=== PATIENT | female | born 1950 | race Caucasian/White ===

== ENCOUNTER → 2017-10-21 11:11 | Outpatient (BNVA) | payer MEDICARE, BC, SELFPAY | PROVIDERS: Visit Provider Internal Medicine Cardiovascular Disease | DX: I49.1 Atrial premature depolarization (principal); Z98.890 Other specified postprocedural states; I08.0 Rheumatic disorders of both mitral and aortic valves | CPT/HCPCS: 99213 ==

== ENCOUNTER 2017-11-21 10:05 | Outpatient (REF) | payer MEDICARE, BC, SELFPAY ==
[2017-11-21 13:07] LABS: ALT 25 U/L (12-78); AST 18 U/L (15-37); Albumin 3.6 g/dL (3.4-5.0); Alkaline Phosphatase 54 U/L (46-116); BUN 14 mg/dL (7-18); Bilirubin, Total 0.8 mg/dL (0.2-1.0); CREATININE 0.64 mg/dL (0.55-1.02); Calcium 8.9 mg/dL (8.5-10.1); Chloride 107 mmol/L (98-107); Glucose 95 mg/dL (70-100); Sodium 142 mmol/L (136-145); Total Protein 6.6 g/dL (6.4-8.2)
[2017-11-22 11:02] LABS: Hepatitis C Ab w Rflx HCV PCR Negative (NEGAT)
== END 2017-11-21 10:25 ==
LOC: NCHCN 10:05
PROVIDERS: PCP Nurse Practitioner Family; Visit Provider Nurse Practitioner Family
DX: E78.5 Hyperlipidemia, unspecified (principal); I10 Essential (primary) hypertension; I49.9 Cardiac arrhythmia, unspecified; I48.91 Unspecified atrial fibrillation; R31.21 Asymptomatic microscopic hematuria; M81.0 Age-related osteoporosis without current pathological fracture; Z11.59 Encounter for screening for other viral diseases
CPT/HCPCS: 80053; 86803

== ENCOUNTER → 2018-11-10 09:49 | Outpatient (BNVA) | payer MEDICARE, BC, SELFPAY | PROVIDERS: PCP Nurse Practitioner Family; Referring Provider Nurse Practitioner Family; Visit Provider Internal Medicine Cardiovascular Disease | DX: I47.1 Supraventricular tachycardia (principal); I10 Essential (primary) hypertension | CPT/HCPCS: 99213 ==

== ENCOUNTER 2019-03-05 16:28 | Outpatient (REF) | payer MEDICARE, BC, SELFPAY ==
[2019-03-05 22:26] LABS: ALT 20 U/L (14-59); AST 16 U/L (15-37); Albumin 4.4 g/dL (3.4-5.0); Alkaline Phosphatase 51 U/L (46-116); Anion Gap 10.9 mmol/L (3-11); BUN 17 mg/dL (7-18); Bilirubin, Total 0.9 mg/dL (0.2-1.0); CO2 26.1 mmol/L (21.0-32.0); CREATININE 0.69 mg/dL (0.55-1.02); Calcium 9.6 mg/dL (8.5-10.1); Chloride 102 mmol/L (98-107); Glucose 81 mg/dL (74-106); Potassium 4.1 mmol/L (3.5-5.1); Sodium 139 mmol/L (136-145); Total Protein 7.5 g/dL (6.4-8.2)
== END 2019-03-05 16:48 ==
LOC: NCHCN 16:28
PROVIDERS: PCP Nurse Practitioner Family; Visit Provider Nurse Practitioner Family
DX: I10 Essential (primary) hypertension (principal); E78.5 Hyperlipidemia, unspecified; I48.91 Unspecified atrial fibrillation
CPT/HCPCS: 80053

== ENCOUNTER 2019-04-10 02:00 | Outpatient (CLI) | payer MEDICARE, BC, SELFPAY ==
--- NOTE | 2019-04-10 | DI.MAMMO_ITS ---
EXAM: MG MAMMO SCREENING CLINICAL HISTORY: SCREENING, Z12.39 TECHNIQUE: Mammograms were interpreted according to the usual protocol including computer analysis w [employer] CAD system, tomosynthesis and C-view imaging. COMPARISON: FINDINGS: The breasts are of heterogeneously increased radiodensity with fairly symmetrical distribution of fib roglandular tissue. No dominant mass or clumped microcalcification is identified in either breast. Current examination is compared with previous examinations including June 2017 and there has been no g ross interval change in appearance comparison with previous studies. IMPRESSION: No specific evidence of malignancy at this time. Routine screening examinations are suggested at ye farshad intervals in this age group according the ACS ACR guidelines. Category 1 breast density category C.
== END 2019-04-10 02:20 ==
PROVIDERS: PCP Nurse Practitioner Family; Visit Provider Nurse Practitioner Family
DX: Z12.31 Encounter for screening mammogram for malignant neoplasm of breast (principal)
CPT/HCPCS: 77063; 77067

== ENCOUNTER → 2019-04-26 10:24 | Outpatient (BNVA) | payer MEDICARE, BC, SELFPAY | PROVIDERS: PCP Nurse Practitioner Family; Referring Provider Nurse Practitioner Family; Visit Provider Physical Therapy Assistant | DX: Z12.11 Encounter for screening for malignant neoplasm of colon (principal); I10 Essential (primary) hypertension ==

== ENCOUNTER 2019-07-13 08:42 | Outpatient (CLI) | payer MEDICARE, BC, SELFPAY ==
[2019-07-14 12:19] LABS: COVID-19 RT-PCR UVMMC Result Negative (Negative)
== END 2019-07-13 09:02 ==
PROVIDERS: PCP Nurse Practitioner Family; Visit Provider Surgery
DX: Z03.818 Encounter for observation for suspected exposure to other biological agents ruled out (principal)
CPT/HCPCS: U0003

== ENCOUNTER 2019-07-16 06:16 | Day surgery (SDC) | payer MEDICARE, BC, SELFPAY ==
[2019-07-16 06:16] VITALS: BP 114/72; PULSE 75; RESP 18; TEMP 36.8; O2SAT 98
--- NOTE | 2019-07-16 06:25 | W.PREOPHP ---
Date of service: 07/16/19 Time of Service: 07:11 Assessment and Plan Assessment and plan (1) Screening for malignant neoplasm of colon performed: Status: Acute Assessment and plan: The patient is here for Colonoscopy pre-op. Her last screening was in 2008 and was unremarkable. She has no family history of colon cancer. She has not had any bowel habit changes. -Discussed colonoscopy bowel prep as well as the procedure. Discussed possible complications of the procedure to include bleeding, pain, perforation, missed small lesion/polyp, sore throat, aspiration and adverse reaction to the medications. Questions were answered to patient?s satisfaction. No guarantees were implied or given. Discussed patient's echo with anesthesia and she is okay to proceed. She will hold her aspirin x 5 days prior to her procedure. (2) COVID-19 virus not detected: Status: Acute History of Present Illness Narrative: 68 y/o female with history of HTN, atrial fibrillation and SVT (s/p ablation in 2007) presents for colonoscopy screening pre-op. Her last screening was in 2008, which was unremarkable. She denies a family history of colon cancer. She denies any changes in bowel habits including bloody or black tarry stools, abdominal pain, diarrhea or constipation. She denies constitutional symptoms. Denies use of marijuana or any other recreational or illegal drugs. She denies chest pain, palpitations, dyspnea or dyspnea with exertion. Her last cardiology appointment was in 2018 with recommended 1 year follow up. Last Echo was in 2017 which showed moderate aortic insufficiency and moderate mitral regurgitation per the cardiology note. Unable to locate the echo report. She works 4 days a week cleaning houses. She denies prior history or family history of adverse reactions or complications with anesthesia. She denies having any metal implanted in her body. Her Colonoscopy was delayed due to COVID-19. She has had no changes in her health since she was seen in the office in April Review of Systems Constitutional Constitutional: Denies fever(s), Denies headache(s) and Denies weight loss Eyes Eyes: Denies change in vision ENT Ears, Nose, Mouth, and Throat: Denies change in voice, Denies headache(s) and Denies hoarseness Cardiovascular Cardiovascular: Denies chest pain, Denies irregular heart rhythm, Denies palpitations and Denies dyspnea Respiratory Respiratory: Denies cough and Denies dyspnea Gastrointestinal Gastrointestinal: Reports as per HPI and Reports system reviewed and no additional complaints, except as documented Neurologic Neurologic: Denies headache(s) Endocrine Endocrine: Denies palpitations PFSH Medical History Atrial fibrillation (Chronic) 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) Former smoker (Acute) Glaucoma (Chronic) HLD (hyperlipidemia) (Acute) HTN (hypertension) (Chronic) Osteoporosis (Chronic) Palpitations (Acute) SVT (supraventricular tachycardia) (Chronic ~2017) Surgical History (Updated 07/16/19 @ 06:33 by Dayami Cline RN) History of colonoscopy (Chronic) S/P ablation operation for arrhythmia (Acute ~2007) Social History Smoking/Tobacco Use Status: Former Tobacco Use Quit Date: 07/16/99 Alcohol Intake: never Substance use type: does not use Do you feel safe at home: Yes Do you feel safe in your relationship?: Yes Meds Home Medications and Allergies Home Medications Medication Instructions Recorded Confirmed Type latanoprost 1 drp OU HS 02/13/16 07/16/19 History simvastatin 20 mg tablet 20 mg PO QPM 10/21/17 07/16/19 History calcium carbonate 600 mg (1,500 1 cap PO DAILY cap 11/10/18 07/16/19 History mg)-vitamin D3 500 unit capsule multivitamin 1 tab PO DAILY 11/10/18 07/16/19 History aspirin 81 mg tablet,delayed 81 mg PO DAILY 03/13/19 07/16/19 History release metoprolol succinate 25 mg 25 mg PO DAILY 03/13/19 07/16/19 History tablet,extended release 24 hr Allergies Allergy/AdvReac Type Severity Reaction Status Date / Time No Known Allergies Allergy Unverified 07/16/19 06:33 Exam Const General: cooperative, comfortable and no acute distress Orientation: alert and oriented x3 HENMT Head: normocephalic and atraumatic Resp Effort & Inspection: normal respiratory effort Auscultation: clear to auscultation bilaterally Cardio Rate: regular rate Rhythm: regular rhythm Heart Sounds: no gallops, no murmurs and no rubs
--- NOTE | 2019-07-16 06:28 | W.COLOREPORT ---
Date of service: 07/16/19 Time of Service: : Colonoscopy Report Date of procedure: 07/16/19 Pre-op diagnosis general: Colon Cancer Screening Post-op diagnosis procedure note: other (polyps and Diverticulosis) Procedure: Colonoscopy with polypectomy Surgeon: Rekha Tucker Anesthesia proc note operative: other (General/ ASA 2/Zaida Wan CRNA) Estimated blood loss (mL): 3 Pathology: other (rectal polyps x2) Complications: None Disposition: same day Indications: The patient is here for Colonoscopy pre-op. Her last screening was in 2008 and was unremarkable. She has no family history of colon cancer. She has not had any bowel habit changes. -Discussed colonoscopy bowel prep as well as the procedure. Discussed possible complications of the procedure to include bleeding, pain, perforation, missed small lesion/polyp, sore throat, aspiration and adverse reaction to the medications. Questions were answered to patient?s satisfaction. No guarantees were implied or given. Discussed patient's echo with anesthesia and she is okay to proceed. She will hold her aspirin x 5 days prior to her procedure. Prep: Miralax/Dulcolax Procedure Start Time: Procedure End Time: :58 Retraction Time: 15 minutes Findings: Aguilera-diverticulosis 2 small adenomatous rectal polyps Procedure Description: After informed consent was obtained the patient was taken to the procedure room and placed in a left decubitous position. Monitors were applied and a time out was done. The patients name, date of , procedure, allergies to medications and metal in their body was reviewed. The patient was then sedated. Once sedated and comfortable a rectal exam was done. External exam revealed mild rectal tissue prolapse. Internal exam revealed a normal sphincter tone and no palpable masses. The scope was then introduced and retro-flexed. No internal hemorrhoids, masses or polyps were identified on retro-flexion. The scope was then advanced to the cecum with some difficulty. There was moderate to severe aguilera-diverticulosis and her colon was tortuous. The ileocecal valve and appendiceal orifice were identified. The prep was adequate. The scope was then slowly retracted over 15 minutes back into the rectum. Polyps were removed with cold forceps in the rectum. The scope was removed and the patient was woken up and taken back to Same day surgery in stable condition. The patient tolerated the procedure well and there were no immediate complications. Follow up: The patient should follow up in 3-5 years unless they develop changes in bowel habits or other new gastrointestinal complaints.
--- NOTE | 2019-07-16 06:29 | PDOC.DSDIS_ITS ---
Discharge Plan Disposition Patient Disposition: HOME Condition: Good Discharge Details Reason For Visit: Colon Cancer Screening Attending Provider: Rekha Tucker Primary Care Provider: Saundra Mascorro Home Meds and New Rx's Prescriptions: Continued multivitamin Tablet 1 tab PO DAILY RF: 0 calcium carbonate-vitamin D3 [Calcium 600 with Vitamin D3] 600 mg(1,500mg) - 500 unit capsule 1 cap PO DAILY RF: 0 simvastatin 20 mg tablet 20 mg PO QPM RF: 0 aspirin [Adult Aspirin Regimen] 81 mg tablet,delayed release (DR/EC) 81 mg PO DAILY RF: 0 metoprolol succinate 25 mg tablet extended release 24 hr 25 mg PO DAILY RF: 0 latanoprost 2.5 ML drops 1 drp OU HS RF: 0 Discontinued polyethylene glycol 3350 17 gram/dose powder 238 g PO ONCE Qty: 238 RF: 0 bisacodyl [Dulcolax (bisacodyl)] 5 mg tablet,delayed release (DR/EC) 5 mg PO ONCE Qty: 4 RF: 0 Discharge Instructions Instructions: Diverticulosis (GEN), Colorectal Polyps (GEN) Additional Instructions: Findings: Diverticulosis 2 small polyps Follow up: 3-5 years Please call if you develop: fevers >101.5 Nausea or Vomiting Abdominal pain that is not transient DAY SURGERY UNIT POST ENDOSCOPY INSTRUCTIONS 1. Because there will be medication in your system for the next 24 hours, you may feel a little sleepy. Your coordination will be affected. Therefore: a. Do not drive or operate dangerous equipment for 24 hours. b. Do not drink alcohol beverages for 24 hours (not even beer). c. Plan to go home and rest for the day. 2. Generally there are no restrictions on your activity after a day or so has gone by, but you may feel a bit fatigued for a few days. 3 After you arrive home you may have a light meal and return to a normal diet as you can tolerate it without feeling sick to your stomach. 4. After surgery, you may feel pain or discomfort. This should be only transient, but if it persists please contact your doctor. 5. If there are any questions regarding the findings of your procedure, please feel free to contact your doctor. 6. If you are unable to contact your doctor with a problem, contact the hospital at [phone]. 7. Continue all your regular medications unless directed otherwise. I understand the above instructions and have no questions. Signature of Patient or Responsible Adult Escort Date/Time Name of Responsible Adult Escort Signature of Nurse Date/Time Activity:: Activity as Tolerated Diet:: high fiber diet Discharge Orders Discharge Orders: Discharge Order (Routine); Ordered 07/16/19 Ordered By: Rekha Tucker DS: Diagnosis Discharge Diagnosis (1) Screening for malignant neoplasm of colon performed: Status: Acute (2) COVID-19 virus not detected: Status: Acute
[2019-07-16] MEDS: Lactated Ringers 1,000 ML 80 ML IV (06:45)
--- NOTE | 2019-07-16 07:32 | BOWEL_PTH ---
PATIENT: Iliana Azul LOC: [facility] U#:[id number] AGE/SX: 68/F ROOM: RE07/16/[address]: Rekha Tucker MD : 1950 BED: DIS: 07/16/2019 SPEC #: [id number] RECD: 07/16/19 14:23 STATUS: GINA REQ #: [id number] OSVALDO: 07/16/19 07:[address]: Rekha Tucker DEPT: Surgical Specimen RECD BY: Teresa Still ENTERED: 07/16/19 14:28 SP TYPE: Bowel OTHR DR: Saundra Mascorro Tissues: ] - BIOPSY BOWEL Procedures: GROSS AND MICRO LEVEL 4 Comments: [id number]
[2019-07-16 08:36] VITALS: BP 92/46; PULSE 63; RESP 18; TEMP 36.2; O2SAT 99
[2019-07-16] MEDS: Hyoscyamine 0.125 MG SL/ORAL/CHEW SL (08:55)
[2019-07-16 09:45] VITALS: BP 106/57; PULSE 68; RESP 17; TEMP 36.6; O2SAT 100
== END 2019-07-16 10:02 | disposition home or self-care (01) ==
PROVIDERS: PCP Nurse Practitioner Family; Visit Provider Surgery
PROC: 0DJD8ZZ Inspection of Lower Intestinal Tract, Via Natural or Artificial Opening Endoscopic (ICD-10-PCS; CPT 45378; principal; 2019-07-16 07:30)
DX: Z12.11 Encounter for screening for malignant neoplasm of colon (principal); K62.1 Rectal polyp; K57.30 Diverticulosis of large intestine without perforation or abscess without bleeding; Q43.8 Other specified congenital malformations of intestine; I10 Essential (primary) hypertension; I48.91 Unspecified atrial fibrillation
CPT/HCPCS: 45380; 88305; NC; J2001; J2405; J3490

== ENCOUNTER → 2019-11-13 10:30 | Outpatient (BNVA) | payer MEDICARE, BC, SELFPAY | PROVIDERS: PCP Nurse Practitioner Family; Referring Provider Nurse Practitioner Family; Visit Provider Internal Medicine Cardiovascular Disease | DX: I47.1 Supraventricular tachycardia (principal); Z12.11 Encounter for screening for malignant neoplasm of colon; I08.0 Rheumatic disorders of both mitral and aortic valves; I10 Essential (primary) hypertension | CPT/HCPCS: 99204; 99215 ==

== ENCOUNTER 2020-04-10 18:10 | Outpatient (REF) | payer MEDICARE, BC, SELFPAY ==
[2020-04-10 20:25] LABS: ALT 22 U/L (14-59); AST 19 U/L (15-37); Albumin 4.2 g/dL (3.4-5.0); Alkaline Phosphatase 60 U/L (46-116); Anion Gap 12.1 mmol/L (3-11); BUN 21 mg/dL (7-18); Bilirubin, Total 1.1 mg/dL (0.2-1.0); CO2 22.9 mmol/L (21.0-32.0); CREATININE 0.6 mg/dL (0.55-1.02); Calcium 9.5 mg/dL (8.5-10.1); Chloride 104 mmol/L (98-107); Glucose 80 mg/dL (74-106); Sodium 139 mmol/L (136-145); Total Protein 7.4 g/dL (6.4-8.2)
== END 2020-04-10 18:11 | disposition home or self-care (01) ==
LOC: NCHCN 18:10
PROVIDERS: PCP Nurse Practitioner Family; Visit Provider Nurse Practitioner Family
DX: I10 Essential (primary) hypertension (principal); E78.5 Hyperlipidemia, unspecified; I48.91 Unspecified atrial fibrillation; I47.1 Supraventricular tachycardia
CPT/HCPCS: 80053

== ENCOUNTER 2020-04-21 01:33 | Outpatient (CLI) | payer MEDICARE, BC, SELFPAY ==
--- NOTE | 2020-04-21 | DI.MAMMO_ITS ---
EXAM: MAMMO SCREENING CLINICAL HISTORY: SCREENING, Z12.39 TECHNIQUE: Mammograms were interpreted according to the usual protocol including computer analysis w [employer] CAD system, tomosynthesis and C-view imaging. COMPARISON: 2016 through 2019 FINDINGS: The breasts are composed of heterogeneously dense fibroglandular densities, Breast Density category C . No suspicious masses or suspicious microcalcifications are seen. No skin thickening or abnormal axillary lymph nodes are seen. There has been no significant change from prior exams. IMPRESSION: BI-RADS Category 1, Negative mammogram. Yearly screening mammography is recommended. Breast Density Category C, heterogeneously Dense. The mammogram demonstrates the patient's breast tissue is dense. Dense breast tissue is very common a nd is not abnormal but dense breast tissue can make it harder to find cancer on a mammogram. Also, de nse breast tissue may increase breast cancer risk. This information about the result of the mammogram report was provided to the patient to raise their awareness. Use this report when you speak with the patient about their risks for breast cancer, which includes their family history. At that time, you may recommend additional screening tests (Ultrasound or MRI) as they might be useful based on their r isk. A negative radiographic report should not delay biopsy if a dominant or clinically suspicious mass is present. Up to ten percent of cancers are not identified on mammography. A negative report may reinforce clinical impression. Adenosis and dense breasts may obscure an underlying neoplasm. False positive reports average 6 to 10%.
== END 2020-04-21 01:53 ==
PROVIDERS: PCP Nurse Practitioner Family; Visit Provider Nurse Practitioner Family
DX: Z12.31 Encounter for screening mammogram for malignant neoplasm of breast (principal)
CPT/HCPCS: 77063; 77067

== ENCOUNTER 2020-12-11 01:06 | Outpatient (CLI) | payer MEDICARE, BC, SELFPAY ==
--- NOTE | 2020-12-11 07:00 | DI.US_ITS ---
APPROVED REPORT EXAM: Comprehensive 2D, Doppler, and color-flow Echocardiogram Patient Location: Out-Patient Cutter Operator [employer] Shingle: Kati Ellison RDCS (AE) Indications: Mitral valve regurgitation, Aortic Insufficiency Other Information Study Quality: Good Conclusion Normal left ventricular wall thickness and chamber size. Estimated ejection fraction is 60 to 65%. There are no segmental wall motion abnormalities Normal right ventricular size and systolic function The right atrium is normal in size. The left atrium is moderately dilated The aortic valve is trileaflet. Leaflets are mildly thickened. There is trace to mild aortic regurg itation Normal mitral valve with mild to moderate mitral regurgitation Normal tricuspid valve with mild regurgitation. Estimated right ventricular systolic pressure is 28 mmHg Wall motion Left Ventricle The left ventricle is normal size. The left ventricular systolic function is normal. The left ventric ular ejection fraction is within the normal range. There is normal left ventricular wall thickness. T here is normal LV segmental wall motion. There is no ventricular septal defect visualized. LVEF is 60 -65%. Right Ventricle The right ventricle is normal size. The right ventricular systolic function is normal. The RVSP is 28 .1mmHg. Atria Left atrium is moderately dilated. Right atrium is moderately dilated. The interatrial septum is inta ct with no evidence for an atrial septal defect. Aortic Valve Mildly thickened leaflets Aortic valve is trileaflet. There is no aortic valvular stenosis. Trace to mild aortic regurgitation. Mitral Valve The mitral valve is normal in structure. No evidence of mitral valve stenosis. Mild to moderate renzo l regurgitation. Tricuspid Valve The tricuspid valve is normal in structure. There is no tricuspid valve stenosis. Mild tricuspid regu rgitation. Pulmonic Valve The pulmonary valve is normal in structure. There is no pulmonic valvular stenosis. Trace pulmonic re gurgitation. Great Vessels The aortic root is normal in size. The ascending aorta is borderline Aortic arch is normal in caliber . dilated. IVC is normal in size and collapses >50% with inspiration. Pericardium There is no pericardial effusion. 2D Dimensions IVSD d PLAX 0.93 cm F: 0.6-1.0 LV Vol A2C d MOD 100.7 mL LVPW d PLAX 0.92 cm F: 0.6 - 1.0 LV Vol A4C d MOD 87.8 mL LVID d PLAX 4.92 cm F: 3.8 - 5.2 LA vol/ BSA A2C s A-L 45.6 mL/m2 LVDs 3.05 cm F: 2.2 - 3.5 LA vol/ BSA A4C s A-L 41.5 mL/m2 Ao Root d 3.26 cm F: 2.7 - 3.3 LA Vol/ BSA Biplane s A-L 43.7 mL/m2 RA Area A4C 17.01 cm2 LA Area A4C s MOD 21.86 cm2 RA Vol/ BSA A4C s A-L 28.8 mL/m2 LA Area A2C s MOD 22.99 cm2 Ao Asc Diam d 3.21 cm F: 2.3 - 3.1 LV EF A4C MOD 63.1 % LV EF Teichholz 67.8 % LV EF A2C MOD 63.8 % LVEF (Hobbs's) 63.21 % F: 54 - 74 LV EF Biplane MOD 63.2 % LV Volume 78.44 mL F: 46 - 106 SV 62.05 mL LV Volume Index 46.97 mL/m2 F: 29 - 61 SV Index 37.11 mL/m2 LV Vol Biplane MOD 98.2 mL FS 37.85 % M-Mode TAPSE 2.64 cm (M/F) >1.7 LV Diastology MV E' medial 0.076 (>0.07 m/s) E/A Ratio 0.8 LV E/e MED 7.45 (<14) MV E Vmax 0.57 (0.4-1.3 m/s) MV E' lateral 0.077 (>0.1 m/s) MV A Vmax 0.70 (0.4-1.3 m/s) LV E/e LAT 7.30 (<14) MV E/A Ratio 0.78 MV E/E' medial 7.47 MV E/E' lateral 7.35 Aortic Valve LVOT Area 3.30 cm2 AoV Area Vmax 2.11 cm2 LVOT Vmax 0.93 m/s AoV Area/ BSA (Vmax) 1.26 cm2/m2 LVOT Mean Ezio. 0.66 m/s TYRELL Mean Ezio. 2.26 cm2 LVOT Peak Grad 3.5 mmHg TYRELL Mean Ezio. Index 1.35 cm2/m2 LVOT Mean Grad 2.0 mmHg AR DT 2559 msec LVOT VTI 0.235 m AR PHT 742 msec LVOT Diam s 2.00 cm AoV Vmax 1.46 m/s Velocity Ratio 0.63 AoV Mean Ezio. 0.97 m/s AoV Peak Grad 8.5 mmHg LVOT SV 77.49 mL AoV Mean Grad 4.3 mmHg AoV VTI 0.292 m AoV Area VTI 2.65 cm2 AoV Area/ BSA (VTI) 1.59 cm/m2 Mitral Valve MV DT 261 (160-240 msec) MR Vmax 4.82 m/s MV PHT 76 msec MR VTI 1.876 m MV Area PHT 2.91 cm2 MR Peak Grad 92.8 mmHg MV VTI 0.295 m MR Mean Grad 68.2 mmHg MV VTI Annulus 0.297 m MR PISA Radius 0.53 cm MV Area VTI 2.64 (4.0-6.0 cm2) MR EROA 0.13 cm2 MR Aliasing Velocity 0.35 m/s MR PISA 1.74 cm2 Pulmonary Valve PV Vmax 1.57 (0.5-1.5 m/s) RVOT Peak Gr. 1.63 mmHg PV Peak Grad 9.8 mmHg RVOT Mean Gr. 0.75 mmHg PV Mean Grad 4.1 mmHg RVOT VTI 0.144 m PV VTI 0.321 m RVOT Vmax 0.64 m/s Tricuspid Valve TR Peak Grad 25.1 mmHg TR Vmax 2.51 m/s RA Pressure 3.00 mmHg RVSP (TR) 28.1 mmHg
== END 2020-12-11 01:26 ==
PROVIDERS: PCP Nurse Practitioner Family; Visit Provider Internal Medicine Cardiovascular Disease
DX: I08.3 Combined rheumatic disorders of mitral, aortic and tricuspid valves (principal); Z01.810 Encounter for preprocedural cardiovascular examination
CPT/HCPCS: 93306

== ENCOUNTER → 2020-12-19 13:33 | Outpatient (BNVA) | payer MEDICARE, BC, SELFPAY | PROVIDERS: PCP Nurse Practitioner Family; Referring Provider Nurse Practitioner Family; Visit Provider Internal Medicine Cardiovascular Disease | DX: I47.1 Supraventricular tachycardia (principal) | CPT/HCPCS: 99213 ==

== ENCOUNTER 2021-04-14 16:12 | Outpatient (REF) | payer MEDICARE, BC, SELFPAY ==
[2021-04-14 16:04] LABS: ALT 22 U/L (14-59); AST 16 U/L (15-37); Alkaline Phosphatase 49 U/L (46-116); Anion Gap 9.4 mmol/L (3-11); BUN 20 mg/dL (7-18); Bilirubin, Total 1.1 mg/dL (0.2-1.0); CO2 25.6 mmol/L (21.0-32.0); CREATININE 0.8 mg/dL (0.55-1.02); Calcium 9.4 mg/dL (8.5-10.1); Chloride 106 mmol/L (98-107); Glucose 99 mg/dL (74-106); Sodium 141 mmol/L (136-145)
== END 2021-04-14 16:13 | disposition home or self-care (01) ==
LOC: NCHCN 16:12
PROVIDERS: PCP Nurse Practitioner Family; Visit Provider Nurse Practitioner Family
DX: I10 Essential (primary) hypertension (principal); E78.5 Hyperlipidemia, unspecified; I48.91 Unspecified atrial fibrillation
CPT/HCPCS: 80053

== ENCOUNTER 2021-04-23 01:09 | Outpatient (CLI) | payer MEDICARE, BC, SELFPAY ==
--- NOTE | 2021-04-23 11:45 | DI.MAMMO_ITS ---
Exam(s) MAMMO SCREENING EXAM: MAMMO SCREENING CLINICAL HISTORY: SCREENING, Z12.39 TECHNIQUE: Mammograms were interpreted according to the usual protocol including computer analysis w [employer] CAD system, tomosynthesis and C-view imaging. COMPARISON: FINDINGS: Breasts are heterogeneously dense. No dominant mass or clumped microcalcification is breast. Curren t examination is compared with previous examinations including March 2019 and April 2020 and there has been no gross interval change appearance comparison previous studies. IMPRESSION: no specific evidence of malignancy at this time. Routine screening examinations are suggested at year ly intervals in this age group according to the ACS ACR guidelines. BI-RADS Category 1 - Negative Breast Density - Category C - Heterogeneously dense
== END 2021-04-23 01:29 ==
PROVIDERS: PCP Nurse Practitioner Family; Visit Provider Nurse Practitioner Family
DX: Z12.31 Encounter for screening mammogram for malignant neoplasm of breast (principal); R92.8 Other abnormal and inconclusive findings on diagnostic imaging of breast
CPT/HCPCS: 77063; 77067

== ENCOUNTER 2021-05-01 00:12 | Outpatient (CLI) | payer MEDICARE, BC, SELFPAY ==
--- NOTE | 2021-05-01 10:00 | DI.DEXA_ITS ---
Exam(s) XR DEXA BONE DENSITY W/WO ABDIAZIZ EXAM: XR DEXA BONE DENSITY W/WO ABDIAZIZ CLINICAL HISTORY: ASYMPTOMATIC POSTMENOPAUSAL STATE, Z78.0 TECHNIQUE: COMPARISON: No exams were available for comparison FINDINGS: DEXA scan was performed according to the usual protocol. Please see the accompanying data sheets. Findings for left hip scanning are T-score -1.3 with left femoral neck T-score -2.2. Prior examinati on of June 2017 showed left hip T-score -0.9. Lumbar spine scanning shows T-score -2.6. Prior examination of 2018 showed lumbar T-score -2.8. Left forearm scanning shows T-score -2.4. Prior examination showed T-score -2.3. IMPRESSION: Measurements are consistent with osteoporosis according to the WHO criteria. The lateral vertebral s canogram shows no evidence of a vertebral compression fracture. RADIATION DOSE DELIVERED: Total DLP
== END 2021-05-01 00:32 ==
PROVIDERS: PCP Nurse Practitioner Family; Visit Provider Nurse Practitioner Family
DX: Z78.0 Asymptomatic menopausal state (principal); Z13.820 Encounter for screening for osteoporosis; M81.0 Age-related osteoporosis without current pathological fracture
CPT/HCPCS: 77080

== ENCOUNTER 2022-11-29 17:22 | Emergency (ER) | payer MEDICARE, BC, SELFPAY ==
[2022-11-29 17:24] VITALS: BP 143/91; PULSE 70; RESP 20; TEMP 37.2; O2SAT 99
--- NOTE | 2022-11-29 17:30 | RT.EKG_ITS ---
APPROVED REPORT Exam: Resting ECG Reason for Exam: High Calcium Patient Location: E HR:67 bpm ECG Measurements Heart Rate 67 AXIS NJ 129 P -23 QRSd 86 QRS -9 QT 406 T 45 QTc 428 Conclusion Sinus rhythm.
[2022-11-29 17:58] VITALS: RESP 20
--- NOTE | 2022-11-29 18:01 | ED.GENADUL_ITS ---
Discharge Plan Disposition Patient Disposition: Home Condition: Good Discharge Details Clinical Impression: Hypercalcemia Primary Care Provider: Saundra Mascorro ED Provider: Grecia Mora Home Meds and New Rx's Prescriptions: Continued multivitamin Tablet 1 tab PO DAILY simvastatin 20 mg tablet 20 mg PO QPM aspirin [Adult Aspirin Regimen] 81 mg tablet,delayed release (DR/EC) 81 mg PO DAILY metoprolol succinate 25 mg tablet extended release 24 hr 25 mg PO DAILY latanoprost 2.5 ML drops 1 drp OU HS trazodone 50 mg tablet 50 mg PO HS PRN PRN Patient Comments: TAKE ONE-HALF TABLET BY MOUTH AT BEDTIME Held calcium carbonate-vitamin D3 [Calcium 600 with Vitamin D3] 600 mg(1,500mg) - 500 unit capsule 1 cap PO DAILY Hold Instructions: Resume on 11/17/54. Hold until told to resume by your primary care doctor. alendronate 70 mg tablet See Rx Instructions PO .COMPLEX Hold Instructions: Resume on 04/14/54. Hold until told to resume by your primary care doctor. Patient Comments: TAKE ONE TABLET BY MOUTH ONCE WEEKLY Rx Instructions: orally once weekly; Discharge Instructions Instructions: Hypercalcemia (ED) Additional Instructions: Do not take your next dose of alendronate until you clear it with your primary care doctor. Call your primary care doctor tomorrow to schedule an appointment for this week to follow up on your visit there. Return to the emergency department for new or worsening symptoms. Referrals: Saundra Mascorro [Primary Care Provider] - Medical Decision Making 71yo F presenting for hypercalcemia found on routine outpatient labs. Asymptomatic. Started alendronate three months ago. Vital signs and physical exam reassuring. EKG with no QT prolongation or other sequelae of hypercalcemia. Labs here reviewed, CBC normal, CMP reassuring with Ca of 11.2. Normal lipase. UA reassuring. With mild asymptomatic hyperglycemia would not treat emergently; advised to hold her home bisphosphonate and calcium and followup with PCP. Discharged home; discharge instructions including return precautions were reviewed with patient who verbalized understanding. All questions were answered and they are in full agreement with the plan. Lab Data Lab results reviewed: Yes I reviewed the patient's lab results. Labs: Laboratory Tests Range/Units 11/29/22 18:01 WBC (4.4-10.8) 10^3/uL 7.43 RBC (3.93-5.22) 10^6/uL 4.09 Hgb (11.2-15.7) g/dL 13.2 Hct (36.0-46.0) % 38.5 MCV (80-95) fL 94 MCH (27.0-33.0) pg 32.3 MCHC (32.0-36.0) % 34.3 RDW (11.7-14.6) % 12.0 Plt Count (130-400) 10^3/uL 217 MPV (8.0-11.0) fL 9.5 Immature Gran % 0.3 Neutrophils % 62.2 Lymphocytes % 27.7 Monocytes % 7.5 Eosinophils % 1.9 Basophils % 0.4 Nucleated RBC % (0.0-0.3) % 0.0 Absolute Neutrophils (1.2-6.7) 10^3/uL 4.62 Absolute Lymphocytes (1.2-3.4) 10^3/uL 2.06 Absolute Monocytes (0.1-0.8) 10^3/uL 0.56 Absolute Eosinophils (0.0-0.7) 10^3/uL 0.14 Absolute Basophils (0.0-0.2) 10^3/uL 0.03 Sodium (136-145) mmol/L 137 Potassium (3.5-5.1) mmol/L 4.0 Chloride (98-107) mmol/L 103 Carbon Dioxide (21.0-32.0) mmol/L 26.9 Anion Gap (3-11) mmol/L 7.1 BUN (7-18) mg/dL 15 Creatinine (0.55-1.02) mg/dL 0.8 Est GFR (CKD-EPI 2020) (mL/min/1.73m2) 78.24 Glucose (74-106) mg/dL 87 Calcium (8.5-10.1) mg/dL 11.2 H Phosphorus (2.6-4.7) mg/dL 4.2 Magnesium (1.8-2.4) mg/dL 1.8 Total Bilirubin (0.2-1.0) mg/dL 0.8 AST (15-37) U/L 18 ALT (14-59) U/L 17 Alkaline Phosphatase (46-116) U/L 52 Total Protein (6.4-8.2) g/dL 7.3 Albumin (3.4-5.0) g/dL 3.9 Lipase (16-77) U/L 56 HPI General Mode of arrival: ambulatory . Date/Time Provider Initiated Documentation: 11/29/22 17:29 . Limitations to Documentation: no limitations . Information obtained by: patient . HPI Narrative: 71yo F presenting for hypercalcemia found on routine outpatient labs. Was at routine office visit this afternoon, labs were drawn; called this evening for elevated calcium and advised to present to the ED. She is in her usual state of health with no muscle cramps, weakness, fatigue, abdominal pain, nausea, constipation, pain anywhere, or other concerns. Related Data Home Medications Medication Instructions Recorded Confirmed latanoprost 0.005 % eye drops 1 drp OU HS 02/13/16 11/29/22 simvastatin 20 mg tablet 20 mg PO QPM 10/21/17 11/29/22 calcium carbonate 600 mg-vitamin 1 cap PO DAILY 11/10/18 11/29/22 D3 12.5 mcg (500 unit) capsule (Calcium 600 with Vitamin D3) multivitamin 1 tab PO DAILY 11/10/18 11/29/22 aspirin 81 mg tablet,delayed 81 mg PO DAILY 03/13/19 11/29/22 release (Adult Aspirin Regimen) metoprolol succinate 25 mg 25 mg PO DAILY 03/13/19 11/29/22 tablet,extended release 24 hr alendronate 70 mg tablet See Rx Instructions PO .COMPLEX 11/29/22 11/29/22 trazodone 50 mg tablet 50 mg PO HS PRN PRN 11/29/22 11/29/22 Allergies Allergy/AdvReac Type Severity Reaction Status Date / Time No Known Allergies Allergy Unverified 11/29/22 19:05 General Stated Complaint: GenMedical RAFI: 3 Review of Systems Narrative: see HPI PFSH All Active Problems (Updated 11/29/22 @ 18:48 by Grecia Mora MD) Hypercalcemia (Acute) AVNRT (AV kuldip re-entry tachycardia) (Acute) Polyp of colon, hyperplastic (Acute) 07/16/19 Dr. Lucien Tucker, 2 hyperplastic, repeat 10 years Screening for malignant neoplasm of colon performed (Acute) COVID-19 virus not detected (Acute) Medical History (Updated 11/29/22 @ 18:48 by Grecia Mora MD) Atrial fibrillation Controlled Former smoker Osteoporosis Glaucoma HLD (hyperlipidemia) HTN (hypertension) Palpitations SVT (supraventricular tachycardia) (~2016) Surgical History History of colonoscopy S/P ablation operation for arrhythmia (~2007) Social History Smoking/Tobacco Use Status: Former Tobacco Use Quit Date: 07/16/99 Smoking risk assessment performed?: Yes Alcohol Intake: never Substance use type: does not use Do you feel safe at home: Yes Do you feel safe in your relationship?: Yes Exam Narrative Exam Narrative: General: Alert, well appearing, well nourished, in no acute distress. Head: Normocephalic, atraumatic Neck: Trachea midline, Neck supple. ENT: MMM. No oropharygeal lesions or exudate. Cardiac: RRR, no murmurs appreciated Resp: No respiratory distress. CTAB. Abd: Soft, non-distended, nontender : No suprapubic tenderness. Extremities: No deformities. No peripheral edema. Neurologic: GCS 15. Moves all extremities freely against gravity Course Vital Signs Vital signs: Vital Signs Temperature 37.2 C 11/29/22 17:24 Pulse 70 11/29/22 17:24 Respiratory Rate 20 11/29/22 17:24 Blood Pressure 143/91 H 11/29/22 17:24 Pulse Oximetry 99 11/29/22 17:24 Temperature 37.2 C 11/29/22 17:24 Temperature Source Skin 11/29/22 17:24 Pulse 70 11/29/22 17:24 Respiratory Rate 20 11/29/22 17:58 Respiratory Effort Normal, Non-Labored 11/29/22 17:58 Respiratory Depth Normal 11/29/22 17:58 Respiratory Pattern Normal 11/29/22 17:58 Blood Pressure 143/91 H 11/29/22 17:24 Blood Pressure Position Sitting 11/29/22 17:24 Pulse Oximetry 99 11/29/22 17:24 Oxygen Delivery Method Room Air 11/29/22 17:24 Oxygen Flow Rate 0 11/29/22 17:24 Pain Level 0 11/29/22 17:24
[2022-11-29 18:08] LABS: Abs Immature Grans 0.02 10^3/uL (0.0-0.06); Absolute Basophil Count 0.03 10^3/uL (0.0-0.2); Absolute Eosinophil Count 0.14 10^3/uL (0.0-0.7); Absolute Lymphocyte Count 2.06 10^3/uL (1.2-3.4); Absolute Monocyte Count 0.56 10^3/uL (0.1-0.8); Absolute Neutrophil Count 4.62 10^3/uL (1.2-6.7); Basophils % 0.4; Eosinophils % 1.9; HCT 38.5 % (36.0-46.0); HGB 13.2 g/dL (11.2-15.7); Immature Grans % 0.3; Lymphocytes % 27.7; MCH 32.3 pg (27.0-33.0); MCHC 34.3 % (32.0-36.0); MCV 94 fL (80-95); MPV 9.5 fL (8.0-11.0); Monocytes % 7.5; Neutrophils % 62.2; Platelet Count 217 10^3/uL (130-400); RBC 4.09 10^6/uL (3.93-5.22); WBC 7.43 10^3/uL (4.4-10.8)
[2022-11-29 18:23] LABS: Lipase 56 U/L (16-77); PHOSPHORUS 4.2 mg/dL (2.6-4.7)
[2022-11-29 18:24] LABS: ALT 17 U/L (14-59); AST 18 U/L (15-37); Albumin 3.9 g/dL (3.4-5.0); Alkaline Phosphatase 52 U/L (46-116); Anion Gap 7.1 mmol/L (3-11); BUN 15 mg/dL (7-18); Bilirubin, Total 0.8 mg/dL (0.2-1.0); CO2 26.9 mmol/L (21.0-32.0); CREATININE 0.8 mg/dL (0.55-1.02); Calcium 11.2 mg/dL (8.5-10.1); Chloride 103 mmol/L (98-107); Estimated GFR 78.24 (mL/min/1.73m2); Glucose 87 mg/dL (74-106); Magnesium 1.8 mg/dL (1.8-2.4); Sodium 137 mmol/L (136-145); Total Protein 7.3 g/dL (6.4-8.2)
--- NOTE | 2022-11-29 18:30 | RT.EKG_ITS ---
APPROVED REPORT Exam: Resting ECG Reason for Exam: electrolyte abnormality Patient Location: E HR:72 bpm ECG Measurements Heart Rate 72 AXIS ID 139 P -13 QRSd 85 QRS 8 QT 411 T 54 QTc 438 Conclusion Sinus rhythm. No ST segment or T wave abnormalities to suggest occlusive [place]
[2022-11-29 18:55] LABS: Bilirubin Negative (Negative); Blood Trace-lysed (Negative); Clarity Clear (Clear); Glucose Negative (Negative); Ketones Negative (Negative); Leukocyte Esterase Small (Negative); Nitrite Negative (Negative); Urobilinogen 0.2 mg/dL (Up to 0.2)
[2022-11-29 19:04] LABS: Bacteria Rare HPF (Negative); C & S Indicated? Yes; Casts 3-5 Hyaline LPF (Negative); Crystals Negative HPF (Negative); Epithelial Cells Rare HPF (Negative); Mucus Trace (Negative); RBC 0-2 HPF (0-2)
[2022-11-29 19:44] VITALS: BP 143/73; PULSE 72; RESP 18; O2SAT 97
== END 2022-11-29 19:45 | disposition home or self-care (01) ==
PROVIDERS: Emergency Provider Student in an Organized Health Care Education/Training Program; PCP Nurse Practitioner Family
DX: E83.52 Hypercalcemia (principal)
CPT/HCPCS: 36415; 80053; 83690; 93005; 99283; 81003; 81015; 83735; 84100; 85025; 87086; 93010

== ENCOUNTER 2022-11-29 20:25 | Outpatient (REF) | payer MEDICARE, BC, SELFPAY ==
[2022-11-29 16:34] LABS: ALT 20 U/L (14-59); AST 15 U/L (15-37); Albumin 4.2 g/dL (3.4-5.0); Alkaline Phosphatase 49 U/L (46-116); Anion Gap 7.5 mmol/L (3-11); BUN 15 mg/dL (7-18); Bilirubin, Total 0.8 mg/dL (0.2-1.0); CO2 29.5 mmol/L (21.0-32.0); CREATININE 0.8 mg/dL (0.55-1.02); Chloride 104 mmol/L (98-107); Estimated GFR 78.24 (mL/min/1.73m2); Glucose 94 mg/dL (74-106); PHOSPHORUS 4.3 mg/dL (2.6-4.7); Sodium 141 mmol/L (136-145); Total Protein 7.4 g/dL (6.4-8.2)
[2022-11-29 16:41] LABS: Calcium 11.8 mg/dL (8.5-10.1)
[2022-11-29 17:19] LABS: Vitamin D 25 Total 35.5 ng/mL (30-100)
== END 2022-11-29 20:26 | disposition home or self-care (01) ==
LOC: NCHCN 20:25
PROVIDERS: PCP Nurse Practitioner Family; Visit Provider Nurse Practitioner Family
DX: M81.0 Age-related osteoporosis without current pathological fracture (principal); K59.00 Constipation, unspecified; G47.9 Sleep disorder, unspecified; M54.9 Dorsalgia, unspecified; I10 Essential (primary) hypertension; I48.91 Unspecified atrial fibrillation; I49.9 Cardiac arrhythmia, unspecified; E78.5 Hyperlipidemia, unspecified
CPT/HCPCS: 80053; 82306; 83735; 84100

== ENCOUNTER 2022-12-03 20:35 | Outpatient (CLI) | payer MEDICARE, BC, SELFPAY ==
[2022-12-03 11:21] LABS: Anion Gap 9.5 mmol/L (3-11); BUN 13 mg/dL (7-18); CO2 26.5 mmol/L (21.0-32.0); CREATININE 0.7 mg/dL (0.55-1.02); Calcium 9.7 mg/dL (8.5-10.1); Chloride 105 mmol/L (98-107); Estimated GFR 91.83 (mL/min/1.73m2); Glucose 103 mg/dL (74-106); Potassium 4.3 mmol/L (3.5-5.1); Sodium 141 mmol/L (136-145)
== END 2022-12-03 20:36 | disposition home or self-care (01) ==
LOC: LBO 20:36
PROVIDERS: PCP Nurse Practitioner Family; Visit Provider Nurse Practitioner Family
DX: E83.52 Hypercalcemia (principal)
CPT/HCPCS: 36415; 80048

== ENCOUNTER 2023-07-07 10:06 | Outpatient (REF) | payer MEDICARE, BC, SELFPAY ==
[2023-07-07 15:10] LABS: ALT 19 U/L (14-59); AST 16 U/L (15-37); Albumin 3.8 g/dL (3.4-5.0); Alkaline Phosphatase 48 U/L (46-116); Anion Gap 6.7 mmol/L (3-11); BUN 15 mg/dL (7-18); Bilirubin, Total 0.6 mg/dL (0.2-1.0); CO2 26.3 mmol/L (21.0-32.0); CREATININE 0.8 mg/dL (0.55-1.02); Calcium 8.5 mg/dL (8.5-10.1); Chloride 106 mmol/L (98-107); Estimated GFR 77.75 (mL/min/1.73m2); Glucose 108 mg/dL (74-106); PHOSPHORUS 2.9 mg/dL (2.6-4.7); Potassium 4.3 mmol/L (3.5-5.1); Sodium 139 mmol/L (136-145); Total Protein 6.6 g/dL (6.4-8.2)
[2023-07-07 15:47] LABS: Vitamin D 25 Total 35.6 ng/mL (30-100)
== END 2023-07-07 10:07 | disposition home or self-care (01) ==
LOC: NCHCN 10:06
PROVIDERS: PCP Nurse Practitioner Family; Visit Provider Nurse Practitioner Family
DX: M81.0 Age-related osteoporosis without current pathological fracture (principal); Z00.00 Encounter for general adult medical examination without abnormal findings; I10 Essential (primary) hypertension
CPT/HCPCS: 80053; 82306; 83735; 84100

== ENCOUNTER 2023-09-26 02:22 | Outpatient (CLI) | payer MEDICARE, BC, SELFPAY ==
--- NOTE | 2023-09-26 12:45 | DI.MAMMO_ITS ---
Exam(s) MAMMO SCREENING EXAM: MAMMO SCREENING CLINICAL HISTORY: SCREENING, Z12.39 TECHNIQUE: Bilateral full field digital CC and MLO mammographic images were obtained with 3D tomosyn thesis and utilizing computer aided detection (CAD). COMPARISON: Available for comparison. FINDINGS: Masses/Architectural Distortion: None seen. Microcalcifications: No suspicious pleomorphic-type are seen. Skin Thickening/Nipple Retraction: None. IMPRESSION: 1. No significant interval change with no specific features of malignancy noted. 2. Unless there is more urgent need, screening mammography is recommended, as per [employer] guidelines. BI-RADS Category 1 - Negative Breast Density - Category C - Heterogeneously dense Breast density category C or D implies that the patient has dense breast tissue. Dense breast tissue is very common and is not abnormal but dense breast tissue can make it harder to find cancer on a ma mmogram. Also, dense breast tissue may increase their breast cancer risk. This information about the result of the mammogram report was provided to the patient to raise their awareness. Use this report when you speak with the patient about their risks for breast cancer, which includes their family hist ory. At that time, you may recommend for more screening tests (Ultrasound or MRI) as they might be us eful based on their risk. A negative radiographic report should not delay biopsy if a dominant or clinically suspicious mass is present. Up to ten percent of cancers are not identified on mammography. A negative report may reinforce clinical impression. Adenosis and dense breasts may obscure an underlying neoplasm. False positive reports average 6 to 10%. Patient will receive a letter notifying them of these results.
== END 2023-09-26 02:42 ==
LOC: DI 02:22
PROVIDERS: PCP Nurse Practitioner Family; Visit Provider Nurse Practitioner Family
DX: Z12.31 Encounter for screening mammogram for malignant neoplasm of breast (principal)
CPT/HCPCS: 77063; 77067